=== PATIENT | female | born 1980 | race Hispanic/Latino ===

== ENCOUNTER 2017-05-08 14:25 | Outpatient (CLI) | payer BC ==
--- NOTE | 2017-05-08 15:38 | RAD ---
THREE VIEWS RIGHT FOOT: DATE: 05/08/17. COMPARISON: None. HISTORY: Joint swelling. FINDINGS: There is no displaced fracture or evidence of dislocation seen. There is mild joint space narrowing and osteophyte formation involving the first metatarsophalangeal joint. There is also probable mild soft tissue swelling near the first metatarsophalangeal joint wit h questionable corticated erosion involving the base of the first proximal phalanx medially. In the proper clinical setting, this may represent subtle changes of gout. IMPRESSION: Degenerative change with no acute fracture or dislocation. Question subtle changes of gout at the fi rst metatarsophalangeal joint. POS: HEATHER
== END 2017-05-08 14:26 | disposition home or self-care (01) ==
LOC: RAD 14:25
PROVIDERS: ATTEND Family Medicine
DX: M25.40 Effusion, unspecified joint (principal); M19.071 Primary osteoarthritis, right ankle and foot

== ENCOUNTER 2020-04-05 15:57 | Outpatient (CLI) | payer BC ==
--- NOTE | 2020-04-05 16:14 | RAD ---
EXAM LEFT WRIST THREE VIEWS: 04/05/20 HISTORY: Left wrist pain for weeks. FINDINGS: No evidence for acute fracture or dislocation of the wrist. Postsurgical anchors are noted in the pro ximal and distal phalanges of the fourth finger. Mild degenerative change. IMPRESSION: No acute fracture or dislocation of the left wrist. POS: OFF
== END 2020-04-05 15:58 | disposition home or self-care (01) ==
LOC: BICRAD 15:57
PROVIDERS: ATTEND Physician Assistant Medical
DX: M25.532 Pain in left wrist (principal)

== ENCOUNTER 2021-06-27 08:13 | Outpatient (CLI) | payer OTHER | END 2021-06-27 08:14 | disposition home or self-care (01) | LOC: DTY/OP 08:13 | PROVIDERS: ATTEND Family Medicine | DX: E66.01 Morbid (severe) obesity due to excess calories (principal); Z68.42 Body mass index [BMI] 45.0-49.9, adult | CPT/HCPCS: 97802 ==

== ENCOUNTER 2021-09-20 14:52 | Outpatient (CLI) | payer BC | END 2021-09-20 14:53 | disposition home or self-care (01) | LOC: BICRAD 14:52 | PROVIDERS: ATTEND Nurse Practitioner Family | DX: M25.511 Pain in right shoulder (principal) ==

== ENCOUNTER 2021-11-21 09:14 | Outpatient (CLI) | payer BC | END 2021-11-21 09:15 | disposition home or self-care (01) | LOC: BICRAD 09:14 | PROVIDERS: ATTEND Family Medicine | DX: M54.2 Cervicalgia (principal) | CPT/HCPCS: 72040 ==

== ENCOUNTER 2021-12-12 07:42 | Outpatient (CLI) | payer BC | END 2021-12-12 07:43 | disposition home or self-care (01) | LOC: BICULT 07:42 | PROVIDERS: ATTEND Family Medicine | DX: R10.13 Epigastric pain (principal); N28.89 Other specified disorders of kidney and ureter | CPT/HCPCS: 76700 ==

== ENCOUNTER 2022-06-02 08:24 | Outpatient (CLI) | payer BC | END 2022-06-02 08:25 | disposition home or self-care (01) | LOC: BICRAD 08:24 | PROVIDERS: ATTEND Obstetrics & Gynecology | DX: M25.551 Pain in right hip (principal) ==

== ENCOUNTER 2022-11-27 10:40 | Outpatient (CLI) | payer BC | END 2022-11-27 10:41 | disposition home or self-care (01) | LOC: RAD 10:40 | PROVIDERS: ATTEND Family Medicine | DX: M25.511 Pain in right shoulder (principal) ==